=== PATIENT | female | born 1985 | race Caucasian/White ===

== ENCOUNTER 2020-06-01 16:09 | Inpatient (IN) | payer OTHER ==
[2020-06-01 17:15] LABS: APPEARANCE,URINE SLIGHTLY-CLOUDY; BILIRUBIN,URINE NEGATIVE (NEGATIVE); COLOR,URINE YELLOW; GLUCOSE, URINE NEGATIVE (NEGATIVE); KETONES,URINE NEGATIVE (NEGATIVE); LEUKOCYTE ESTERASE,URINE TRACE (NEGATIVE); NITRITE,URINE NEGATIVE (NEGATIVE); PROTEIN,URINE NEGATIVE (NEGATIVE); URINE SPECIFIC GRAVITY 1.009; UROBILINOGEN,URINE NEGATIVE mg/dL (<2.0)
[2020-06-01 17:43] LABS: URINE AMPHETAMINES SCREEN NEGATIVE; URINE BARBITURATES SCREEN NEGATIVE; URINE BENZODIAZEPINES SCREEN NEGATIVE; URINE COCAINE SCREEN NEGATIVE; URINE MARIJUANA (THC) SCREEN NEGATIVE; URINE METHADONE SCREEN NEGATIVE; URINE PHENCYCLIDINE SCREEN NEGATIVE
[2020-06-01 17:47] LABS: UR PRO/CREAT RATIO RESULT 0.3 mg/mg (0.0-0.2); URINE CREATININE 47.2 mg/dL (16-327); URINE PROTEIN 14.7 mg/dL (<12)
--- NOTE | 2020-06-01 19:15 | Admission Physical ---
Datetime Report Generated by CPN: 06/01/2020 19:15 CURRENT ADMISSION Chief Complaint: Uterine Contractions Indication for Induction: Not Applicable Admit Impression : Term, Intrauterine Admit Plan: Admit to Unit; Initiate Labor Protocol ALLERGIES Medication Allergies: No Medication Allergies: No Known Allergies (06/01/2020) Latex: No Latex Allergies OBSTETRICAL HISTORY EDC: 06/14/2020 00:00 : 6 Para: 5 Term: 4 : 1 Livin Cesareans: 1 VBACs: 3 Gestational Diabetes: No Rh Sensitization: No Incompetent Cervix: No SULY: No Infertility: No ART Treatment: No Uterine Anomaly: No IUGR: No Hx Previous C/S: Yes Macrosomia: No Hx Loss/Stillborn: No PIH: No Hx : No Placenta Previa/Abruption: No Depression/PP Depression: Yes PTL/PROM: No Post Hemorrhage: No Current Procedures: Ultrasound; NST Obstetrical History Comments: 03/12/2001, vaginal, term, female 10/13/2003, (breech), term, male 07/28/2009, , term, male 10/25/2010, , 36+1 (SROM), male 04/22/2018, , Term, Female Current, Female SEE RECORDS Alcohol: No Marijuana : No Cocaine: No Other Illicit Drugs: No Cigarettes: Never Smoker. [id number] MEDICAL HISTORY Diabetes: No Blood Transfusion: No Pulmonary Disease (Asthma, TB): No Breast Disease: No Hypertension: No Materials Recycler Surgery: No Heart Disease: No Hosp/Surgery: Yes Autoimmune Disorder: No Anesthetic Complications: No Kidney Disease: No Abnormal Pap Smear: No Neuro/Epilepsy: No Psychiatric Disorders: Yes Other Medical Diseases: No Hepatitis/Liver Disease: No Significant Family History: No Varicosities/Phlebitis: No Trauma/Violence : No Thyroid Dysfunction: No Medical History Comments: Depression/Anxiety, Lithotripsy in 2003, hospitailzed with childbirth INFECTIOUS HISTORY Gonorrhea: No Genital Herpes: No Chlamydia: No Tuberculosis: No Syphilis: No Hepatitis: No HIV/AIDS Exposure: No Rash or Viral Illness: No HPV: No PHYSICAL EXAM General: Normal HEENT: Normal Neurologic: Normal Thyroid: Normal Heart: Normal Lungs: Normal Breast: Deferred Back: Normal Abdomen: Normal Genitourinary Exam: Normal Extremities: Normal DTRs: Normal Pelvic Type: Adequate FETUS A EGA: 38.1 PLANS FOR LABOR AND DELIVERY Labor and Delivery: None Pain Management: Natural; Epidural Feeding Preference: Breast Circumcision: N/A INFORMED CONSENT Signature: with User ID: [email or web address]
[2020-06-01] MEDS ORDERED: RINGERS SOLUTION,LACTATED 1,000 ML IV ONE (21:01)
[2020-06-01] MEDS ORDERED: MORPHINE SULFATE 10 MG/ML INJ IV ONE (21:02)
[2020-06-01] MEDS: RINGERS SOLUTION,LACTATED 1,000 ML IV PRN ×2 (21:15→22:20)
[2020-06-01] MEDS ORDERED: MORPHINE SULFATE 10 MG/ML INJ ONE (21:20)
[2020-06-01] MEDS ORDERED: LIDOCAINE 1% INJ-PF (10 MG/ML) 30 ML SDV ONE (21:54)
[2020-06-01] MEDS ORDERED: MISOPROSTOL 0.2 MG TABLET ONE (21:54)
[2020-06-01] MEDS ORDERED: OXYTOCIN 10 UNIT/ML VIAL ONE (21:54)
[2020-06-01] MEDS ORDERED: OXYTOCIN/0.9 % SODIUM CHLORIDE 30 UNIT/500 ML RTUINJ ONE (21:55)
[2020-06-01 22:32] LABS: ABSOLUTE LYMPHOCYTES (AUTO) 1.6 10^3/uL (0.5-4.7); ABSOLUTE MONOCYTES (AUTO) 0.8 10^3/uL (0.1-1.4); ABSOLUTE NEUT (AUTO) 16.3 10^3/uL (1.7-8.2); BASOPHILS % (AUTO) 0.2 % (0-2); EOSINOPHILS % (AUTO) 0.2 % (0-6); HEMATOCRIT 30.2 % (36.0-47.0); LYMPHOCYTES % (AUTO) 8.4 % (13-45); MEAN CORPUSCULAR HEMOGLOBIN 25.4 pg (27.0-33.4); MEAN CORPUSCULAR HGB CONC 33.1 g/dL (32.0-36.0); MEAN CORPUSCULAR VOLUME 77 fl (80-97); MONOCYTES % (AUTO) 4.2 % (3-13); PLATELET COUNT 251 10^3/uL (150-450); RED BLOOD COUNT 3.94 10^6/uL (3.72-5.28); RED CELL DISTRIBUTION WIDTH 14.6 % (11.5-14.0); TOTAL CELLS COUNTED % (AUTO) 100 %; WHITE BLOOD COUNT 18.7 10^3/uL (4.0-10.5)
[2020-06-01] MEDS ORDERED: EPHEDRINE SULFATE INJ 50 MG/1 ML AMPULE ONE (22:44)
[2020-06-01] MEDS ORDERED: ROPIVACAINE HCL 0.2% INJ/PF (2 MG/ML) 20 ML SDV ONE (22:44)
[2020-06-01] MEDS ORDERED: FENTANYL/BUPIVACAINE/NS/PF 300 MCG/150 ML RTUINJ EPI ONE (22:44)
[2020-06-02] MEDS ORDERED: OXYTOCIN/0.9 % SODIUM CHLORIDE 30 UNIT/500 ML RTUINJ IV PRN (01:34)
[2020-06-02] MEDS ORDERED: DIPHENHYDRAMINE HCL 25 MG CAPSULE PO PRN (01:34)
[2020-06-02] MEDS ORDERED: PROMETHAZINE HCL INJ 25 MG/1 ML VIAL IV PRN (01:34)
[2020-06-02] MEDS ORDERED: DIBUCAINE 1% OINTMENT 28 GM TP PRN (01:34)
[2020-06-02] MEDS ORDERED: NA PHOS,M-B/NA PHOS,DI-BA (ADULT) 133 ML ENEMA PR PRN (01:34)
[2020-06-02] MEDS ORDERED: ACETAMINOPHEN WITH CODEINE #3 TABLET PO PRN (01:34)
[2020-06-02] MEDS ORDERED: DIPH/PERTUSS(ACELL)/TETANUS VAC/PF 0.5 ML SYR (>=10YO) IM PRN (01:34)
[2020-06-02] MEDS ORDERED: PSEUDOEPHEDRINE HCL 30 MG TABLET PO PRN (01:34)
[2020-06-02] MEDS ORDERED: GLYCERIN/WITCH HAZEL LEAF 1 EACH MED..WIPE TP PRN (01:34)
[2020-06-02] MEDS ORDERED: MEASLES,MUMPS&RUBELLA VACC/PF 0.5 ML VIAL SUBCUT PRN (01:34)
[2020-06-02] MEDS ORDERED: PROMETHAZINE HCL 25 MG SUPP.RECT PR PRN (01:34)
[2020-06-02] MEDS ORDERED: MAGNESIUM HYDROXIDE SUSP 30 ML UDCUP PO PRN (01:34)
[2020-06-02] MEDS ORDERED: ACETAMINOPHEN 650 MG SUPP.RECT PR PRN (01:34)
[2020-06-02] MEDS ORDERED: ZOLPIDEM TARTRATE 5 MG TABLET PO PRN (01:34)
[2020-06-02] MEDS ORDERED: PROMETHAZINE HCL 25 MG TABLET PO PRN (01:34)
[2020-06-02] MEDS ORDERED: BENZOCAINE/MENTHOL AEROSOL SPRAY 56 ML TOP PRN (01:34)
--- NOTE | 2020-06-02 01:52 | Warning Signs in Babies ---
VOD Warning Signs Datetime Report Generated by [facility]: 06/02/2020 01:52 VOD#608 -Warning Signs in Babies: Viewed with Parent(s)/Family (06/02/2020 01:51:Eric Tse RN)
--- NOTE | 2020-06-02 04:54 | Delivery Summary ---
Del Sum A-C Datetime Report Generated by CPN: 06/02/2020 04:53 DELIVERY PERSONNEL DELIVERY PERSONNEL: [id number] Delivery Doctor:: Jorden Bal MD Labor and Delivery Nurse:: Eric Tse RNanimal laboratory technician Nurse:: Lizbet Espinoza RNC Nursery Nurse:: Cheri Barr RN Java Golden Gate Developer/RAILWAY TRACTION LINE WORKER: Noemi Ross, ST MATERNAL INFORMATION Delivery Anesthesia: Epidural Medications After Delivery: Pitocin 30 Units in 500ml NS/D5W Delivery QBL: 50 Maternal Complications: None LABOR SUMMARY EDC: 06/14/2020 00:00 No. Babies in Womb: 1 Attempted: Yes Labor Anesthesia: Epidural LABOR INFORMATION Reason for Induction: Not Applicable Onset of Labor: 06/01/2020 21:31 Complete Dilatation: 06/01/2020 23:28 Oxytocin: N/A Group B Beta Strep: Negative Antibiotics # of Doses: 0 Name of Antibiotic Given: N/A Steroids Given: None Reason Steroids Not Administered: Not Applicable MEMBRANES Membranes Rupture Method: Spontaneous Rupture of Membranes: 06/02/2020 23:45 Length of Rupture (hr): -22.32 Amniotic Fluid Color: Clear Amniotic Fluid Amount: Moderate Amniotic Fluid Odor: Normal STAGES OF LABOR Stage 1 hr: 1 Stage 1 min: 57 Stage 2 hr: 1 Stage 2 min: 58 Stage 3 hr: 0 Stage 3 min: 3 Total Time in Labor hr: 3 Total Time in Labor min: 58 VAGINAL DELIVERY Episiotomy: None Laceration #1: None Laceration Extension #1: N/A Laceration Repair: Not Applicable Sponge Count Correct: N/A Sharps Count Correct: N/A CSECTION DELIVERY Primary Indication: N/A Secondary Indication: N/A CSection Incidence: N/A Labor: N/A Elective: N/A CSection Incision: N/A BABY A INFORMATION Infant Delivery Date/Time: 06/02/2020 01:26 Method of Delivery: Vaginal Nurse Controlled Delivery: No Born in Route : No : Successful Forceps: N/A Vacuum Extraction: N/A Shoulder Dystocia : No PRESENTATION/POSITION BABY A Presentation: Cephalic Cephalic Presentation: Vertex Vertex Position: Left Occipital Posterior Breech Presentation: N/A PLACENTA INFORMATION BABY A Placenta Delivery Time : 06/02/2020 01:29 Placenta Method of Delivery: Spontaneous Placenta Status: Delivered SCORES BABY A Heart Rate 1 min: >100 bpm Resp Effort 1 min: Slow, Irregular Reflex Irritability 1 min: Cough or Sneeze or Pulls Away Muscle Tone 1 min: Active Motion Color 1 min: Body [place], Extremities Blue SCORE 1 MIN: 8 Heart Rate 5 min: >100 bpm Resp Effort 5 min: Good Cry Reflex Irritability 5 min: Cough or Sneeze or Pulls Away Muscle Tone 5 min: Active Motion Color 5 min: Body [place], Extremities Blue SCORE 5 MIN: 9 INFANT INFORMATION BABY A Gestational Age at Delivery: 38.2 Gestational Status: Early Term- 37- 38.6 Weeks Infant Outcome : Liveborn Condition : Stable Sex: Female IDENTIFICATION BABY A Verification Date/Time: 06/02/2020 01:53 ID Band Number: [id number] Mother's Name Verified: Yes Infant RN Verifying : Makaylartin,RNC Additional Verifying Personnel: [facility],CLASSROOM INSTRUCTIONAL AIDE WEIGHT/LENGTH BABY A Infant Birthweight (gm): 3030 Weight (lb): 6 Infant Weight (oz): 11 Length (in): 19.00 Infant Length (cm): 48.26 CORD INFORMATION BABY A No. Cord Vessels: 3 Nuchal Cord : Around Neck x1, Loose Cord Blood Taken: Yes-For Eval (Mom's Blood Type - or O+) Infant Suction: Mouth ASSESSMENT BABY A Complications: None Physical Findings at Delivery: Within Normal Limits Skin to Skin: Yes Care By: TMartin,RN Transferred To: Remains with Mother BABY B INFORMATION : N/A SIGNATURES Signature: with User ID: [email or web address]
--- NOTE | 2020-06-02 04:54 | Birth Certificate Data ---
Cert Data Datetime Report Generated by CPN: 06/02/2020 04:53 CERTIFICATE DATA Delivery Provider: Jorden Bal MD (06/01/2020 16:32:Jorden Bal MD (WEB)) 47a. Care: Yes (06/01/2020 16:32:BIANCA Francois) 47b. Date of First Visit: 12/23/2019 00:00 (06/01/2020 16:32:Ese Cantu RN) 47c. Date of Last Visit: 05/31/2020 00:00 (06/01/2020 16:32:Ese Cantu RN) 47d. Number of Visits: 8 (06/01/2020 16:32:Ese Cantu RN) 48a. Number of Prev Live Births: 5 (06/01/2020 16:32:Ese Cantu RN) 48b. Now Livin (06/01/2020 16:32:Ese Cantu RN) 48c. Live Births Now : 0 (06/01/2020 16:32:QS system process) 48d. Date of Last Live : 04/22/2018 00:00 (06/01/2020 16:32:Ese Cantu RN) 48e. Losses: 0 (06/01/2020 16:32:Ese Cantu RN) RISK FACTORS IN THIS 49a. Diabetes: No (06/01/2020 16:32:Ese Cantu RN) 49b. Hypertension: No (06/01/2020 16:32:Ese Cantu RN) 49c. Previous Births: 1 (06/01/2020 16:32:Ese Cantu RN) 49d. Stillborns: No (06/01/2020 16:32:Ese Cantu RN) 49d. IUGR: No (06/01/2020 16:32:Ese Cantu RN) 49e. Infertility Treatment: No (06/01/2020 16:32:Ese Cantu RN) 49f. Previous Cesareans: 1 (06/01/2020 16:32:Ese Cantu RN) Mother's Height 50b. Height Inches: 64 (06/02/2020 03:39:QS system process) Mother's Weight 51b. Weight at Delivery (lbs): 218 (06/02/2020 03:39:QS system process) 52. Dt Last Normal Menses Began: 09/07/2019 00:00 (06/01/2020 16:32:Ese Cantu RN) Infections Present/Treated 53a. Gonorrhea: No (06/01/2020 16:32:Ese Cantu RN) Results this Hospital Visit : Negative (06/01/2020 16:32:Ese Cantu RN) 53b. Syphilis: No (06/01/2020 16:32:Ese Cantu RN) 53c. Chlamydia: No (06/01/2020 16:32:Ese Cantu RN) Results this Hospital Visit: Negative (06/01/2020 16:32:Ese Cantu RN) 53d. Hepatitis B: No (06/01/2020 16:32:Ese Cantu RN) Results this Hospital Visit: Negative (06/01/2020 16:32:Ese Cantu RN) 53j. Test Result: Negative (06/01/2020 16:32:Ese Cantu RN) Obstetric Procedures 54a, b, c. Obstetric Procedures: Ultrasound; NST (06/01/2020 16:32:Ese Cantu RN) Cigarette Smoking Cigarette Smoking: Never Smoker. [id number] (06/01/2020 16:32:Ese Cantu RN) 55a. 3 Months Before Preg - Ci (06/01/2020 16:32:Eric Tse RN) 55a. Packs: 0 (06/01/2020 16:32:Eric Tse RN) 55b. 1st Trimester of Preg- Ci (06/01/2020 16:32:Eric Tse RN) 55b. Packs: 0 (06/01/2020 16:32:Eric Tse RN) 55c. 2nd Trimester of Preg- Ci (06/01/2020 16:32:Eric Tse RN) 55c. Packs: 0 (06/01/2020 16:32:Eric Tse RN) 55d. 3rd Trimester of Preg- Ci (06/01/2020 16:32:Eric Tse RN) 55d. Packs: 0 (06/01/2020 16:32:Eric Tse RN) Onset of Labor 56a. PROM >12 Hrs: -22.32 (06/01/2020 16:32:QS system process) 56b. Precipitous Labor <3 Hrs: 3 (06/01/2020 16:32:QS system process) 56c. Prolonged Labor > 20 Hrs: 3 (06/01/2020 16:32:QS system process) 57a. Induction of Labor: N/A (06/01/2020 16:32:Eric Tse RN) 57c. Non-Vertex Presentation A: Vertex (06/01/2020 16:32:Eric Tse RN) 57d. Steroids - Lung Mat: None (06/01/2020 16:32:Eric Tse RN) 57d. Steroids - Lung Mat: Not Applicable (06/01/2020 16:32:Eric Tse RN) 57g. Moderate/Heavy Meconium: Clear (06/01/2020 23:45:rEic Tse RN) 57h. Intolerance of Labor: N/A (06/01/2020 16:32:Eric Tse RN) : N/A (06/01/2020 16:32:Eric Tse RN) 57i. Epidural/Spinal Anesthesia: Epidural (06/01/2020 16:32:Eric Tse RN) Method of Delivery 58a. Forceps - Unsuccessful A: N/A (06/01/2020 16:32:Eric Tse RN) 58b. Vacuum - Unsuccessful A: N/A (06/01/2020 16:32:Eric Tse RN) 58c. Presentation at 58c. Presentation at - A : Vertex (06/01/2020 16:32:Eric Tse RN) 58c. Presentation at - A : N/A (06/01/2020 16:32:Eric Tse RN) 58c. Presentation at - A : Cephalic (06/01/2020 16:32:Eric Tse RN) Final Route and Method of Del 58d. Baby A Route/Delivery: Vaginal (06/02/2020 01:26:Eric Tse RN) 58e. Trial of Labor Attempted: Yes (06/01/2020 16:32:Eric Tse RN) 58e. Trial of Labor Attempted A: Successful (06/01/2020 16:32:Eric Tse RN) 58e. Trial of Labor Attempted B: N/A (06/01/2020 16:32:Eric Tse RN) Maternal Morbidity 59b. 3rd or 4th Degree Lacs: None (06/01/2020 16:32:Jorden Bal MD ([employer])) Birthweight Baby A: 3030 (06/01/2020 16:32:Hoa Portillo RN) 60a. Pounds : 6 (06/01/2020 16:32:QS system process) 60b. Ounces: 11 (06/01/2020 16:32:QS system process) 61. GA at Delivery Baby A: 38.2 (06/01/2020 16:32:Eric Tse RN) : Early Term- 37- 38.6 Weeks (06/01/2020 16:32:QS system process) 62a. 5 Minute Baby A: 9 (06/01/2020 16:32:QS system process)
[2020-06-02] MEDS: IBUPROFEN 800 MG TABLET PO SCH ×3 (05:43→21:34)
[2020-06-02] MEDS: PANTOPRAZOLE SODIUM 20 MG TABLET.DR PO SCH (10:09)
[2020-06-02] MEDS: PRENATAL VITAMIN W DHA CAPSULE PO SCH (10:09)
[2020-06-02] MEDS: DOCUSATE SODIUM 100 MG CAPSULE PO SCH ×2 (10:09→17:55)
[2020-06-02] MEDS: FERROUS SULFATE 325 MG TABLET PO SCH ×2 (10:09→17:55)
[2020-06-02] MEDS: FLUOXETINE HCL 20 MG CAPSULE PO SCH (10:09)
[2020-06-02] MEDS: SENNOSIDES/DOCUSATE 8.6-50 MG 1 EACH TABLET PO SCH (10:09)
[2020-06-02] MEDS: FAMOTIDINE 20 MG TABLET PO SCH ×2 (10:19→21:33)
[2020-06-03] MEDS: IBUPROFEN 800 MG TABLET PO SCH ×2 (05:15→14:11)
[2020-06-03 06:49] LABS: HEMATOCRIT 29.7 % (36.0-47.0); HEMOGLOBIN 9.8 g/dL (12.0-15.5); MEAN CORPUSCULAR HEMOGLOBIN 25.1 pg (27.0-33.4); MEAN CORPUSCULAR HGB CONC 32.8 g/dL (32.0-36.0); MEAN CORPUSCULAR VOLUME 77 fl (80-97); PLATELET COUNT 227 10^3/uL (150-450); RED BLOOD COUNT 3.88 10^6/uL (3.72-5.28); RED CELL DISTRIBUTION WIDTH 14.9 % (11.5-14.0); WHITE BLOOD COUNT 12.7 10^3/uL (4.0-10.5)
[2020-06-03] MEDS: FAMOTIDINE 20 MG TABLET PO SCH (09:32)
[2020-06-03] MEDS: PRENATAL VITAMIN W DHA CAPSULE PO SCH (09:35)
[2020-06-03] MEDS: PANTOPRAZOLE SODIUM 20 MG TABLET.DR PO SCH (09:35)
[2020-06-03] MEDS: DOCUSATE SODIUM 100 MG CAPSULE PO SCH (09:35)
[2020-06-03] MEDS: SENNOSIDES/DOCUSATE 8.6-50 MG 1 EACH TABLET PO SCH (09:35)
[2020-06-03] MEDS: FERROUS SULFATE 325 MG TABLET PO SCH (09:35)
[2020-06-03] MEDS: FLUOXETINE HCL 20 MG CAPSULE PO SCH (09:35)
--- NOTE | 2020-06-03 11:57 | PDOC DISCHARGE SUMMARY ---
Impression - Admit/DC Date/PCP Admission Date/Primary Care Provider: 06/01/20 21:36 Discharge Date: 06/03/20 - Discharge Diagnosis (1) , delivered Is this a current diagnosis for this admission?: Yes - Additional Information Discharge Diet: Cardiac Discharge Activity: Balance Activity w/Rest, Pelvic Rest Prescriptions: Ibuprofen [Motrin 800 mg Tablet] 800 mg PO Q8HP PRN #60 tablet PRN Reason: Home Medications: Fluoxetine HCl [Prozac] 40 mg PO DAILY 06/01/20 Ibuprofen [Motrin 800 mg Tablet] 800 mg PO Q8HP PRN #60 tablet 06/03/20 Vit/Dha [ Multi + Dha Capsule] 1 cap PO DAILY capsule 06/03/20 Hospital Course 59. Maternal Morbidity (serious complications experinced by the mother associated with labor and delivery: None of the above Results Laboratory Results: WBC 12.7 10^3/uL (4.0-10.5) H 06/03/20 06:32 RBC 3.88 10^6/uL (3.72-5.28) 06/03/20 06:32 Hgb 9.8 g/dL (12.0-15.5) L 06/03/20 06:32 Hct 29.7 % (36.0-47.0) L 06/03/20 06:32 MCV 77 fl (80-97) L 06/03/20 06:32 MCH 25.1 pg (27.0-33.4) L 06/03/20 06:32 MCHC 32.8 g/dL (32.0-36.0) 06/03/20 06:32 RDW 14.9 % (11.5-14.0) H 06/03/20 06:32 Plt Count 227 10^3/uL (150-450) 06/03/20 06:32 Lymph % (Auto) 8.4 % (13-45) L 06/01/20 22:22 [place] % (Auto) 4.2 % (3-13) 06/01/20 22:22 Eos % (Auto) 0.2 % (0-6) 06/01/20 22:22 Baso % (Auto) 0.2 % (0-2) 06/01/20 22:22 Absolute Neuts (auto) 16.3 10^3/uL (1.7-8.2) H 06/01/20 22:22 Absolute Lymphs (auto) 1.6 10^3/uL (0.5-4.7) 06/01/20 22:22 Absolute Monos (auto) 0.8 10^3/uL (0.1-1.4) 06/01/20 22:22 Absolute Eos (auto) 0.0 10^3/uL (0.0-0.6) 06/01/20 22:22 Absolute Basos (auto) 0.0 10^3/uL (0.0-0.2) 06/01/20 22:22 Seg Neutrophils % 87.0 % (42-78) H 06/01/20 22:22 Urine Color YELLOW 06/01/20 16:16 Urine Appearance SLIGHTLY-CLOUDY 06/01/20 16:16 Urine pH 6.0 (5.0-9.0) 06/01/20 16:16 Ur Specific [place] 1.009 06/01/20 16:16 Urine Protein NEGATIVE mg/dL (NEGATIVE) 06/01/20 16:16 Urine Glucose (UA) NEGATIVE mg/dL (NEGATIVE) 06/01/20 16:16 Urine Ketones NEGATIVE mg/dL (NEGATIVE) 06/01/20 16:16 Urine Blood SMALL (NEGATIVE) H 06/01/20 16:16 Urine Nitrite NEGATIVE (NEGATIVE) 06/01/20 16:16 Urine Bilirubin NEGATIVE (NEGATIVE) 06/01/20 16:16 Urine Urobilinogen NEGATIVE mg/dL (<2.0) 06/01/20 16:16 Ur Leukocyte Esterase TRACE (NEGATIVE) H 06/01/20 16:16 Urine WBC (Auto) 3 /HPF 06/01/20 16:16 Urine RBC (Auto) 1 /HPF 06/01/20 16:16 Urine Bacteria (Auto) 1+ /HPF 06/01/20 16:16 Squamous Epi Cells Auto 8 /HPF 06/01/20 16:16 Urine Mucus (Auto) RARE /LPF 06/01/20 16:16 Urine Creatinine 47.2 mg/dL (16-327) 06/01/20 16:16 Protein/Creatinin Ratio 0.3 mg/mg (0.0-0.2) H 06/01/20 16:16 Urine Total Protein 14.7 mg/dL (<12) H 06/01/20 16:16 Urine Ascorbic Acid NEGATIVE (NEGATIVE) 06/01/20 16:16 Urine Opiates Screen NEGATIVE 06/01/20 16:16 Urine Methadone Screen NEGATIVE 06/01/20 16:16 Ur Barbiturates Screen NEGATIVE 06/01/20 16:16 Ur Phencyclidine Scrn NEGATIVE 06/01/20 16:16 Ur Amphetamines Screen NEGATIVE 06/01/20 16:16 U Benzodiazepines Scrn NEGATIVE 06/01/20 16:16 Urine Cocaine Screen NEGATIVE 06/01/20 16:16 U Marijuana (THC) Screen NEGATIVE 06/01/20 16:16 RPR NONREACTIVE (NONREACTIVE) 06/01/20 22:22 Blood Type O POSITIVE 06/01/20 22:22 Antibody Screen NEGATIVE 06/01/20 22:22 Plan Plan of Treatment: follow up in 4 weeks at [facility] for post check
[2020-06-03 13:57] VITALS: BP 138/78
== END 2020-06-03 14:35 | disposition home or self-care (01) | DRG 807 ==
LOC: LC 16:09 → LR 21:36 → 2S 06-02 03:39
PROVIDERS: ADMIT Obstetrics & Gynecology Gynecology; ATTEND Obstetrics & Gynecology Gynecology
PROC: 10E0XZZ Delivery of Products of Conception, External Approach (ICD-10-PCS; principal; 2020-06-02)
DX: O69.81X0 Labor and delivery complicated by cord around neck, without compression, not applicable or unspecified (principal); Z37.0 Single live birth; Z20.828 Contact with and (suspected) exposure to other viral communicable diseases; Z28.21 Immunization not carried out because of patient refusal; Z3A.38 38 weeks gestation of pregnancy
CPT/HCPCS: 1967; 36415; 80307; 81001; 82570; 84156; 85025; 85027; 86592; 86850; 86900; 86901; 94760; J2270; J2590; J2795; J3010; J3490